=== PATIENT | male | born 1960 | race Caucasian/White ===

== ENCOUNTER → 2023-04-06 12:04 | Outpatient (REF) | payer OTHER, SELFPAY | LOC: MRI 3T 12:04 | PROVIDERS: ATTENDING PHYSICIAN Specialist; FAMILY PHYSICIAN Family Medicine | DX: M25.562 Pain in left knee (principal); M25.561 Pain in right knee | CPT/HCPCS: 73721 ==

== ENCOUNTER → 2023-10-18 10:08 | Outpatient (REF) | payer OTHER, SELFPAY | LOC: RAD 10:08 | PROVIDERS: ATTENDING PHYSICIAN Internal Medicine Critical Care Medicine; FAMILY PHYSICIAN Family Medicine | DX: Z87.891 Personal history of nicotine dependence (principal) | CPT/HCPCS: 71271 ==

== ENCOUNTER 2023-11-10 11:07 | Emergency (ER) | payer OTHER, SELFPAY ==
[2023-11-10 11:10] VITALS: BP 168/90
--- NOTE | 2023-11-10 11:37 | ED.GENMED ---
History of Present Illness
General
Chief Complaint: Musculo-Skeletal Complaint
Time Seen by Provider: 11/10/23 11:37
History of Present Illness
History of Present Illness:
HPI: Patient presents with left-sided elbow pain ongoing for the past 4 days. He noticed a 'pop' sensation as he was doing a shoulder press 4 days ago at the gym. He has worsening left-sided warmth and swelling at the elbow.
EXAM:
GENERAL: Well appearing in no distress
HEENT: Moist oral mucosa
NEUROLOGIC: Excellent strength all extremities, no obvious coordination deficits
PSYCHIATRIC: Appropriate mental status, normal insight and judgement
EXTREMITIES: There is mild warmth and erythema diffusely to the left elbow more so in the posterior aspect, there is no point tenderness to the olecranon bursa however there is point tenderness over the lateral humeral epicondyle. There is
decreased active range of motion to flexion extension
SKIN: As above
TIME OF INITIAL ENCOUNTER: 11:30 PM
NUMBER AND COMPLEXITY OF PROBLEMS ADDRESSED AT THE ENCOUNTER
� Chronic conditions affecting care: High blood pressure, COPD, sarcoidosis, history of alcoholic hepatitis, CKD
� Acute Exacerbation and/or Progression of Chronic Illness: This is an acute problem
� Differential Diagnosis includes: Bursitis, tendinitis, cellulitis, highly doubt septic joint
AMOUNT AND/OR COMPLEXITY OF DATA TO BE REVIEWED AND ANALYZED
� I performed an independent evaluation of and my interpretation is:
EKG:
CT:
X-rays: I reviewed the x-rays and agree with radiologist interpretation that there is a olecranon enthesophyte
Laboratory Studies:
Other:
� Review of other/old records: I reviewed records�the patient is scheduled for left TKR 11/15/2023
� Clinical information was obtained by an independent historian: None needed
� Prescriptions/Medications Considered but not given:
� Further testing considered but not performed:
RISK OF COMPLICATIONS AND/OR MORBIDITY OR MORTALITY OF PATIENT MANAGEMENT
� Social determinants of health affecting care: Lives at home, has upcoming TKR
� Discussion with other providers: I communicated with Dr. Bansal place him in a sling and he is to follow-up with their group later today at 2:15 PM
� Escalation of care including admission/observation vs risk of discharge considered: As above
Past History
Past History
ED Past Medical History: Other (pneumonia sarcoidosis), Other (Hepatorenalsyndrome, hyponatremia, alcoholic hepatitis, hypertension, COPD, acute kidney injury, bullous emphysema) and Other
Social History
Tobacco: Former smoker
Alcohol: Daily
Drug: None
Personal:
Living: with family
Employment: Employed
Family History
Family History: Other (Noncontributory)
Phy Exam
Physical Exam
Physical Exam:
See HPI
Course
Orders/Labs/Results
Orders:
Orders
11/10/23 11:13
Elbow, 3 view, Left [CR Elbow - Left Min 3 Views ] Urgent
Comment:
Reason For Exam: pain and swelling
11/10/23 11:58
Sling Left-Treatment ONCE
Vital Signs
Initial and Last Documented VS:
Initial Vital Signs
Temp Pulse Resp BP Pulse Ox
98.7 F 89 18 168/90 98
11/10/23 11:10 11/10/23 11:10 11/10/23 11:10 11/10/23 11:10 11/10/23 11:10
Last Documented Vital Signs
Temp Pulse Resp BP Pulse Ox
98.7 F 89 18 168/90 98
11/10/23 11:10 11/10/23 11:10 11/10/23 11:10 11/10/23 11:10 11/10/23 11:10
*Critical Care Note
Total Time (30-74mins, 75-104mins- exclusive of procedures): Not Applicable
ED Attending Note
-
Portions of this chart may have been created with voice recognition software.� Occasional wrong word or��sound alike� substitutions may have occurred due to the inherent limitations of voice recognition software.
Discharge Plan
Departure
Patient Disposition: Home (Routine Discharge)
Date of Disposition: 11/10/23
Time of Disposition: 11:56
Patient with high blood pressure during this ER visit?: Yes
Discharge Problem:
Inflammation of left elbow
Instructions: How to Use a Shoulder Sling, BLOOD PRESSURE
Prescriptions:
No Action
ibuprofen 200 MG tablet
400 mg PO Q6HPRN PRN (Reason: mild pain)
valsartan 80 mg Tablet
80 mg PO QPM
acetaminophen 500 mg Tablet
1,000 mg PO Q6H PRN (Reason: pain)
amlodipine 10 mg Tablet
10 mg PO HS
albuterol sulfate [ProAir HFA] 90 mcg/actuation Hfa Aerosol Inhaler
2 puff INHALATION 6XD PRN (Reason: COPD)
pregabalin [Lyrica] 100 mg Capsule
100 mg PO TID
omega 2-[id number]-fish oil [Fish Oil] 1,000 (120-180) mg Capsule
1 cap PO DAILY
Trelegy Ellipta 100-62.5-25 mcg Blister With Device
1 inh INHALATION DAILY
mupirocin 2 % Ointment
1 applic TOPICAL BID
diclofenac sodium [Voltaren] 1 % Gel
2 g TOPICAL QID PRN (Reason: Pain)
Finasteride-Minoxidil Cream
1 applic topical DAILY
Referrals:
Nelson Umana MD [Family Provider] -
Shante Villegas I., [Active] -
Activity Restrictions/Additional Instructions:
I notified Dr. Villegas, covering for Dr. Ruvalcaba. They want us to put you in a sling and Mattie Bills, physician health care legal assistant will see you at 2:15 PM.
Interventions
Interventions:
*Risk Screen - Suicide Last Done: 11/10/23 11:10
*General Assessment Last Done: 11/10/23 11:10
*Neglect/Abuse Screening Last Done: 11/10/23 11:10
Discharge Date and Time
Print Language: ITALIAN
== END 2023-11-10 12:32 | disposition home or self-care (01) ==
LOC: EMR 11:07
PROVIDERS: EMERGENCY PHYSICIAN Emergency Medicine; FAMILY PHYSICIAN Family Medicine
DX: M13.822 Other specified arthritis, left elbow (principal); I12.9 Hypertensive chronic kidney disease with stage 1 through stage 4 chronic kidney disease, or unspecified chronic kidney disease; N18.9 Chronic kidney disease, unspecified; J43.9 Emphysema, unspecified; Z87.891 Personal history of nicotine dependence
CPT/HCPCS: 99283; 73080

== ENCOUNTER 2023-11-15 06:28 | Day surgery (SDC) | payer OTHER, SELFPAY ==
[2023-10-28 13:08] VITALS: BMI 28.1
[2023-10-28 14:08] LABS: Hematocrit 40.8 % (39.0-52.0); Hemoglobin 14.7 g/dL (13.0-18.0); Mean Corpuscular Hgb 28.8 pg (27.0-31.0); Mean Platelet Volume 11.3 fL (7.4-10.4); Platelet Count 185 10^3/uL (130-400); Red Cell Dist. Width 12.3 % (11.5-14.5); White Blood Cell Count 7.9 10^3/uL (4.8-10.8)
[2023-10-28 14:16] LABS: ALT (SGPT) 20 U/L (0-50); AST (SGOT) 24 U/L (17-59); Albumin 4.6 g/dl (3.5-5.0); Alkaline Phosphatase 59 U/L (38-126); Blood Urea Nitrogen 26 mg/dl (9-20); Calcium 10.1 mg/dl (8.4-10.2); Carbon Dioxide 24 mmol/L (22-30); Chloride 104 mmol/L (98-107); Estimated Creatinine Clearance 48 ml/min; Glucose 114 mg/dl (70-99); Potassium 4.2 mmol/L (3.5-5.1); Sodium 144 mmol/L (135-145); Total Bilirubin 0.7 mg/dl (0.2-1.3); Total Protein 6.7 g/dl (6.3-8.2); eGFR 52.31
[2023-10-29 09:28] LABS: Glycohemoglobin (HgbA1c) 4.9 % (4.0-5.6)
--- NOTE | 2023-11-02 09:31 | VNURNOTE ---
Patient is scheduled for an elective L TKA on 11/15/[address] Ruvalcaba- he is a same day patient. Spoke with patient prior to surgery. Introduced role of [facility] liaison.
Patient reports that he lives with his son in an apartment with a flight of stairs to enter. There is a small landing and a flight of stairs.
He currently functions independently. He has a cane and will be obtaining a rolling walker.
He has never had [facility] services.
PCP is Nelson Umana.
Pharm is [address]
Discussed orthopedic program and post surgical plans.
Reviewed that he will have [facility] services initially and will then start outpatient PT at [facility] on 11/16.
Patient selects [facility] for his home care needs and will go to [facility] outpatient PT per above.
Patient is in agreement with plan and states that his son will be home with him.
Referral placed in [facility].
[2023-11-15] VITALS (13 sets, daily range): BP systolic 97–136; BP diastolic 62–89; PULSE 69; O2SAT 96; BMI 28.1
[2023-11-15] MEDS: NORMOSOL-R/PLASMALYTE-A 1000 IV (08:06)
[2023-11-15] MEDS: TYLENOL 650 MG PO (08:06)
[2023-11-15] MEDS: CELEBREX 200 MG PO (08:06)
[2023-11-15] MEDS: ROXICODONE 5 MG PO (13:11)
[2023-11-15] MEDS: ANCEF 5 IV (14:00)
== END 2023-11-15 14:58 | disposition home or self-care (01) ==
LOC: SDS 06:28
PROVIDERS: ATTENDING PHYSICIAN Specialist; FAMILY PHYSICIAN Family Medicine; OTHER PHYSICIAN Internal Medicine Critical Care Medicine
PROC: 0SRD0J9 Replacement of Left Knee Joint with Synthetic Substitute, Cemented, Open Approach (ICD-10-PCS; 2023-11-15)
DX: M17.12 Unilateral primary osteoarthritis, left knee (principal); J44.9 Chronic obstructive pulmonary disease, unspecified; D86.9 Sarcoidosis, unspecified; K21.9 Gastro-esophageal reflux disease without esophagitis; I45.10 Unspecified right bundle-branch block; N18.32 Chronic kidney disease, stage 3b; G81.91 Hemiplegia, unspecified affecting right dominant side
CPT/HCPCS: 27447; 36415; 73560; 80053; 83036; 85027; 87070; 93005; 97116; 97162; C1713; C1776

== ENCOUNTER → 2024-04-03 11:20 | Outpatient (REF) | payer OTHER, SELFPAY | LOC: HWRAD 11:20 | PROVIDERS: ATTENDING PHYSICIAN Internal Medicine Critical Care Medicine; FAMILY PHYSICIAN Family Medicine | DX: R93.89 Abnormal findings on diagnostic imaging of other specified body structures (principal) | CPT/HCPCS: 71046 ==

== ENCOUNTER → 2024-05-18 13:35 | Outpatient (REF) | payer OTHER, SELFPAY | LOC: HWRAD 13:35 | PROVIDERS: ATTENDING PHYSICIAN Nurse Practitioner Adult Health; FAMILY PHYSICIAN Family Medicine | DX: J44.9 Chronic obstructive pulmonary disease, unspecified (principal) | CPT/HCPCS: 71046 ==

== ENCOUNTER → 2024-10-27 09:52 | Outpatient (REF) | payer OTHER, SELFPAY | LOC: HWRAD 09:52 | PROVIDERS: ATTENDING PHYSICIAN Internal Medicine Critical Care Medicine; FAMILY PHYSICIAN Family Medicine | DX: Z87.891 Personal history of nicotine dependence (principal); R93.89 Abnormal findings on diagnostic imaging of other specified body structures | CPT/HCPCS: 71271 ==

== ENCOUNTER → 2024-11-17 11:36 | Outpatient (REF) | payer OTHER, SELFPAY ==
[2024-11-17 11:16] LABS: Glucose 97 mg/dl (70-99)
== END ==
LOC: PET 11:36
PROVIDERS: ATTENDING PHYSICIAN Internal Medicine Critical Care Medicine
DX: R91.1 Solitary pulmonary nodule (principal); Z01.812 Encounter for preprocedural laboratory examination
CPT/HCPCS: 36415; 82947

== ENCOUNTER 2025-01-04 06:20 | Day surgery (SDC) | payer OTHER, SELFPAY | END 2025-01-04 12:07 | disposition home or self-care (01) | LOC: GI 06:20 | PROVIDERS: ATTENDING PHYSICIAN Internal Medicine; FAMILY PHYSICIAN Family Medicine | DX: R13.10 Dysphagia, unspecified (principal); R93.3 Abnormal findings on diagnostic imaging of other parts of digestive tract; K22.89 Other specified disease of esophagus; K29.70 Gastritis, unspecified, without bleeding; K31.89 Other diseases of stomach and duodenum | CPT/HCPCS: 43239; 88305; 88342 ==

== ENCOUNTER → 2025-02-17 09:07 | Outpatient (REF) | payer OTHER, SELFPAY | LOC: RAD 09:07 | PROVIDERS: ATTENDING PHYSICIAN Internal Medicine Critical Care Medicine; FAMILY PHYSICIAN Family Medicine | DX: R93.89 Abnormal findings on diagnostic imaging of other specified body structures (principal); J95.4 Chemical pneumonitis due to anesthesia; R91.1 Solitary pulmonary nodule | CPT/HCPCS: 71250 ==